=== PATIENT | female | born 1930 | race Caucasian/White ===

== ENCOUNTER → 2019-09-22 | Outpatient (CLI) | payer MEDICARE, OTHER ==
[~2019-09-22] MED LIST: BUSP15; HYDACE5 PO; METO100ER; NEOCOLOTSU OT; SULTRIDS PO
[2019-09-22 11:52] LABS: Uric Acid, Urine 26.4 mg/dL (7.5-49.5)
== END | disposition home or self-care (01) ==
LOC: LAB 11:12 → LAB SHORT 11:12
PROVIDERS: General Practice
DX: M10.9 Gout, unspecified (principal)
CPT/HCPCS: 81050; 84560

== ENCOUNTER → 2021-05-15 | Outpatient (CLI) | payer MEDICARE, OTHER ==
[2021-05-15 11:58] LABS: BASOPHILS ABSOLUTE AUTO 0.05 K/mm3 (0.00-0.23); BASOPHILS PERCENT AUTO 0 % (0-2); EOSINOPHILS ABSOLUTE AUTO 0.18 K/mm3 (0.00-0.68); EOSINOPHILS PERCENT AUTO 2 % (0-6); Hematocrit 37.9 % (33.0-51.0); Hemoglobin 12.5 g/dL (11.5-16.0); IMMATURE GRAN ABSOLUTE AUTO 0.05 K/mm3 (0.00-0.10); IMMATURE GRAN PERCENT AUTO 0 % (0-1); LYMPHOCYTES ABSOLUTE AUTO 2.09 K/mm3 (0.84-5.20); LYMPHOCYTES PERCENT AUTO 18 % (21-46); MONOCYTES ABSOLUTE AUTO 1.05 K/mm3 (0.16-1.47); MONOCYTES PERCENT AUTO 9 % (4-13); Mean Corpuscular HGB 30.8 pg (26.0-34.0); Mean Corpuscular Volume 93 fL (80-100); Mean Platelet Volume 10.1 fL (9.1-12.4); NEUTROPHILS ABSOLUTE AUTO 7.94 K/mm3 (1.96-9.15); NEUTROPHILS PERCENT AUTO 70 % (41-73); Platelet Count 232 K/mm3 (150-400); RDW Coefficient Variation 13.3 % (11.7-14.2); RDW Standard Deviation 45.1 fL (35.1-46.3); Red Blood Cell Count 4.06 M/mm3 (3.80-5.20); White Blood Cell Count 11.36 K/mm3 (4.00-11.30)
[2021-05-15 12:04] LABS: Bun/Creatinine Ratio 17.6 (12.0-20.0); Calcium, Blood 9.2 mg/dL (8.5-10.1); Creatinine, Blood 1.76 mg/dL (0.40-1.00); Potassium, Blood 4.9 mmol/L (3.5-5.5); Uric Acid, Blood 7.9 mg/dL (2.6-6.0)
== END | disposition home or self-care (01) ==
LOC: LAB SHORT 11:52 → LAB 11:52
PROVIDERS: Physician Assistant Medical
DX: M25.532 Pain in left wrist (principal)
CPT/HCPCS: 80048; 84550; 85025

== ENCOUNTER 2021-06-09 13:06 | Inpatient (IN) | payer MEDICARE, OTHER ==
[~2021-06-09] VITALS: Ht 162.6 cm; Wt 48.4 kg
[2021-06-09] MEDS ORDERED: EUTHYROX50 MC1 PO (13:22)
[2021-06-09] MEDS ORDERED: BUSPIRONE HCL10 M6 PO (13:22)
[2021-06-09] MEDS ORDERED: Dyazide 37.5/251 EA PO (13:23)
[2021-06-09] MEDS ORDERED: Bisoprolol Fumar5 MG PO (13:23)
[2021-06-09 13:49] LABS: BASOPHILS ABSOLUTE AUTO 0.04 K/mm3 (0.00-0.23); BASOPHILS PERCENT AUTO 1 % (0-2); EOSINOPHILS ABSOLUTE AUTO 0.11 K/mm3 (0.00-0.68); EOSINOPHILS PERCENT AUTO 1 % (0-6); Hematocrit 37.5 % (33.0-51.0); Hemoglobin 12.4 g/dL (11.5-16.0); IMMATURE GRAN ABSOLUTE AUTO 0.02 K/mm3 (0.00-0.10); IMMATURE GRAN PERCENT AUTO 0 % (0-1); LYMPHOCYTES ABSOLUTE AUTO 2.07 K/mm3 (0.84-5.20); LYMPHOCYTES PERCENT AUTO 24 % (21-46); MONOCYTES ABSOLUTE AUTO 0.72 K/mm3 (0.16-1.47); MONOCYTES PERCENT AUTO 8 % (4-13); Mean Corpuscular HGB 30.4 pg (26.0-34.0); Mean Corpuscular HGB Conc 33.1 g/dL (31.5-36.5); Mean Corpuscular Volume 92 fL (80-100); Mean Platelet Volume 9.8 fL (9.1-12.4); NEUTROPHILS ABSOLUTE AUTO 5.68 K/mm3 (1.96-9.15); NEUTROPHILS PERCENT AUTO 66 % (41-73); Platelet Count 246 K/mm3 (150-400); RDW Standard Deviation 43.7 fL (35.1-46.3); Red Blood Cell Count 4.08 M/mm3 (3.80-5.20); White Blood Cell Count 8.64 K/mm3 (4.00-11.30)
[2021-06-09 14:07] LABS: Albumin, Blood 3.3 g/dL (3.4-5.0); Albumin/Globulin Ratio 0.9 (0.8-1.8); Bilirubin, Total 0.7 mg/dL (0.1-1.0); Bun/Creatinine Ratio 23.3 (12.0-20.0); Calcium, Blood 9.1 mg/dL (8.5-10.1); Creatinine, Blood 1.46 mg/dL (0.40-1.00); Globulin, Blood 3.6 g/dL (2.2-4.0); Potassium, Blood 4.6 mmol/L (3.5-5.5); Total Protein, Blood 6.9 g/dL (6.4-8.2)
[2021-06-09 14:41] LABS: Thyroxine (T4) 7.4 ug/dL (4.8-13.9)
[2021-06-09 14:46] LABS: Thyroid Stimulating Hormone 2.8 uIU/mL (0.360-4.800)
[2021-06-09 16:16] LABS: Source, Urine Clean Catch
[2021-06-09 16:21] LABS: Appearance, Urine Clear (Clear); Bilirubin, Urine Neg (Neg); Blood, Urine Neg (Neg); Color, Urine Yellow (P-Yellow); Glucose Qualitative, Urine Neg (Neg); Ketones, Urine Neg (Neg); Leukocyte Esterase, Urine 1+ (Neg); Nitrite, Urine Pos (Neg); Protein, Urine Neg (Neg); Urobilinogen, Urine NORM (Normal)
[2021-06-09 16:33] LABS: Bacteria Many /hpf; Red Blood Cells, Urine 0-2 /hpf (0-2); Squamous Epithelial Cells Few /hpf (Few); White Blood Cells, Urine 0-2 /hpf (0-5)
[2021-06-09] MEDS ORDERED: OMEP20ER PO (18:21)
[2021-06-10 05:31] LABS: BASOPHILS ABSOLUTE AUTO 0.06 K/mm3 (0.00-0.23); BASOPHILS PERCENT AUTO 1 % (0-2); EOSINOPHILS ABSOLUTE AUTO 0.38 K/mm3 (0.00-0.68); EOSINOPHILS PERCENT AUTO 5 % (0-6); Hematocrit 37.1 % (33.0-51.0); Hemoglobin 12.1 g/dL (11.5-16.0); IMMATURE GRAN ABSOLUTE AUTO 0.02 K/mm3 (0.00-0.10); IMMATURE GRAN PERCENT AUTO 0 % (0-1); LYMPHOCYTES ABSOLUTE AUTO 3.45 K/mm3 (0.84-5.20); LYMPHOCYTES PERCENT AUTO 41 % (21-46); MONOCYTES ABSOLUTE AUTO 0.81 K/mm3 (0.16-1.47); MONOCYTES PERCENT AUTO 10 % (4-13); Mean Corpuscular HGB 30.2 pg (26.0-34.0); Mean Corpuscular HGB Conc 32.6 g/dL (31.5-36.5); Mean Corpuscular Volume 93 fL (80-100); Mean Platelet Volume 10.3 fL (9.1-12.4); NEUTROPHILS ABSOLUTE AUTO 3.79 K/mm3 (1.96-9.15); NEUTROPHILS PERCENT AUTO 45 % (41-73); Platelet Count 239 K/mm3 (150-400); RDW Coefficient Variation 13.1 % (11.7-14.2); RDW Standard Deviation 44.5 fL (35.1-46.3); Red Blood Cell Count 4.01 M/mm3 (3.80-5.20); White Blood Cell Count 8.51 K/mm3 (4.00-11.30)
[2021-06-10 05:59] LABS: Anion Gap 6 mmol/L (6-16); Blood Urea Nitrogen 31 mg/dL (8-24); CHOL/HDL RATIO 3.2; CO2, Blood 24 mmol/L (21-32); Calcium, Blood 9.2 mg/dL (8.5-10.1); Chloride, Blood 109 mmol/L (98-108); Cholesterol 161 mg/dL (50-200); Creatinine, Blood 1.41 mg/dL (0.40-1.00); Glomerular Filtration Rate 35 (60-); Glucose, Blood 95 mg/dL (70-99); HDL Cholesterol 51 mg/dL (>39); LDL/HDL RATIO 1.6; Low Density Lipoprotein Chol 82 mg/dL (0-110); Magnesium, Blood 1.6 mg/dL (1.6-2.4); Phosphorus, Blood 2.9 mg/dL (2.5-4.9); Potassium, Blood 4.6 mmol/L (3.5-5.5); Sodium, Blood 139 mmol/L (136-145); Triglycerides 142 mg/dL (30-160); Very Low Density Lipoprot Chol 28 mg/dL (6-32)
--- NOTE | 2021-06-10 17:32 | NUR ---
SHIFT SUMMARY THE PATIENT IS ALERT AND ORIENTED X4, PLEASANT AND COOPERATIVE WITH CARE. THE PATIENT WORKED WITH PHYSICAL THERAPY THIS SHIFT. THEY HAVE BEEN UP TO THE BSC OR RECLINER WITH 2 ASSIST AND A FWW. 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 THE PATIENT HAS SLURRED SPEECH AT TIMES. ECHO, BUBBLE STUDY AND ULTRASOUND OF THE NECK DONE THIS SHIFT. THE PATIENT HAS FAMILY AT THE BEDSIDE. NO ACUTE CHANGES THIS SHIFT. CALLL LIGHT WITHIN REACH BED IN LOWEST POSITION.
[2021-06-11 05:55] LABS: Albumin, Blood 3.2 g/dL (3.4-5.0); Anion Gap 5 mmol/L (6-16); Blood Urea Nitrogen 30 mg/dL (8-24); Bun/Creatinine Ratio 19.4 (12.0-20.0); CO2, Blood 25 mmol/L (21-32); Calcium, Blood 9.6 mg/dL (8.5-10.1); Chloride, Blood 108 mmol/L (98-108); Creatinine, Blood 1.55 mg/dL (0.40-1.00); Glomerular Filtration Rate 31 (60-); Glucose, Blood 103 mg/dL (70-99); Phosphorus, Blood 2.9 mg/dL (2.5-4.9); Sodium, Blood 138 mmol/L (136-145)
--- NOTE | 2021-06-11 06:41 | NUR ---
SHIFT SUMMARY: PATIENT REMAINS WITH RIGHT SIDED WEAKNESS, CAN ELEVATE LIMBS, BUT THEY DO DRIFT. A&OX4, CLEAR SPEECH. 2PA TO BSC. NO COMPLAINTS OF PAIN. COMPLIANT WITH PLAN OF CARE AND MEDICATION ADMINISTRATION. NO SIGNIFICANT EVENTS OVER NIGHT. PATIENT WISHES TO RETURN HOME, HOWEVER, DAUGHTER AT BEDSIDE STATES THEY DO NOT HAVE THE MEANS TO CARE FOR HER A 2PA. SHE WAS INDEPENDENT PRIOR TO ADMISSION. ARACELI.
--- NOTE | 2021-06-12 02:40 | NUR ---
[employer] ASSEMBLER SUMMARY PATIENT IS ALERRT AND ORIENTED. SHE IS VERY PLEASANT. VITALS CHECKED AND WERE STABLE. SHE DID NOT LODGE ANY COMPLAINT OVERNIGHT. WILL CONTINUE TO MONITOR HER.
[2021-06-12 13:58] LABS: Influenza A, PCR NEGATIVE (NEGATIVE); Influenza B, PCR NEGATIVE (NEGATIVE); Resp Syncytial Virus, PCR NEGATIVE (NEGATIVE); SARS-Cov-2 (COVID-19) PCR, MMC NEGATIVE (NEGATIVE)
[2021-06-12] MEDS ORDERED: ASPI81CH PO (14:56)
[2021-06-12] MEDS ORDERED: CIPR500 PO (14:57)
[2021-06-12] MEDS ORDERED: CLOP75 PO (14:59)
--- NOTE | 2021-06-12 15:25 | NUR ---
PATIENT IS DOING WELL TODAY, AWAITING DISCHARGE. MOOD IS GOOD. IV HAS BEEN REMOVED. PATIENT IS DRINKING TEA VISITING WITH COMPANY.
--- NOTE | 2021-06-12 16:54 | NUR ---
DISCHARGE- 1650- TRANSPORTATION ARRIVED AND ESCORTED THE PATIENT OUT BY [facility]. FAMILY IS FOLLOWING WITH VEHICLE. THEY HAVE THE DISCHARGE ENVELOPE FOR THE NEW FACILITY IN [place]. TRANSFER INTO NEW FACILTIY WAS ARRAGED BY [facility] PROVIDER EL[facility]. FAMILY CARRIED OUT REMAINING PATIENT BELONGINS.
== END 2021-06-12 16:40 | DRG 65 ==
LOC: ER 13:06 → MEDS 13:07
PROVIDERS: Emergency Medicine; Student in an Organized Health Care Education/Training Program; ADMIT Family Medicine
DX: I63.9 Cerebral infarction, unspecified (principal); G81.91 Hemiplegia, unspecified affecting right dominant side; N39.0 Urinary tract infection, site not specified; Z66 Do not resuscitate; R29.706 NIHSS score 6; Z20.822 Contact with and (suspected) exposure to COVID-19; I10 Essential (primary) hypertension; R47.81 Slurred speech; R47.1 Dysarthria and anarthria; H54.7 Unspecified visual loss; R27.0 Ataxia, unspecified; B96.20 Unspecified Escherichia coli [E. coli] as the cause of diseases classified elsewhere; Z88.0 Allergy status to penicillin; Z91.018 Allergy to other foods; Z98.890 Other specified postprocedural states; Z79.899 Other long term (current) drug therapy
CPT/HCPCS: 0241U; 36415; 70450; 80053; 80061; 80069; 81001; 83735; 84436; 84443; 84484; 85025; 87077; 87086; 87186; 92610; 93005; 93010; 93306; 93880; 96365; 96372; 97112; 97162; 97166; 97530; 97535; 99285-25; A9270; G0378; J1644; J3475